=== PATIENT | male | born 1960 | race Caucasian/White ===

== ENCOUNTER 2020-11-25 05:25 | Day surgery (SDC) | payer MEDICARE ==
[~2020-11-25] VITALS: Ht 170 cm; Wt 86.0 kg
[~2020-11-25 05:25] MED LIST: ADVIL200 M1 PO; AMLODIPINE BES2.5 MG PO; CENTRUM ADULTS1 EACH PO; OMEPRAZOLE40 MG PO; ROSUVASTATIN CA10 MG PO; SILDENAFIL20 MG PO
[2020-11-25] MEDS ORDERED: PERCOCET 5-3251 EACH PO (06:56)
[2020-11-26 05:27] LABS: BASOPHIL 0.2 % (0-2); EOSINOPHIL 0.6 % (0-5); HGB 12.1 g/dl (13.2-18.0); LYMPHOCYTE 10.2 % (15-48); MCH 30.6 pg (25.0-31.0); MCHC 33.6 g/dL (32.0-36.0); MCV 91.1 fL (78.0-100.0); MONOCYTE 13.6 % (0-12); MPV 9.8 fL (6.0-9.5); NEUTROPHIL 74.8 % (41-80); NRBC 0; PLT 148 K/uL (150-400); RBC 3.95 M/uL (4.70-6.00); RDW 12.9 % (11.5-14.0); WBC 12.9 K/uL (4.0-10.5)
[2020-11-26 06:29] LABS: BUN/CREAT RATIO (CALC) 16.4 RATIO; CREATININE 0.73 mg/dL (0.67-1.17)
[2020-11-26] MEDS ORDERED: ULTRA-LIGHT RO1 EACH XX (08:58)
[2020-11-26] MEDS ORDERED: 3IN1 COMMODE XX (08:58)
[2020-11-26] MEDS ORDERED: FEOSOL325 MG PO (08:58)
[2020-11-26] MEDS ORDERED: ASPIRIN81 MG PO (09:26)
--- NOTE | 2020-11-26 11:35 | NUR ---
PT. HAD A RATHR ON 11/25/20. PT. REQUESTED TECHNICAL PROJECT MANAGER FOR OUTPT. FIRST APPT. IS 11/27/20 @ 9:00 A.MJohn ADRIAN TO DELIVER A ROLLING WALKER AND 04/28. PT. SIGNED A CHOICE FORM. PT. WILL D/C HOME WITH SPOUSE ON 11/26/20.
== END 2020-11-26 12:19 | disposition home or self-care (01) ==
LOC: FAS 05:25 → FOFB 08:50 → FAS 11-26 12:19
PROVIDERS: Orthopaedic Surgery
DX: M16.11 Unilateral primary osteoarthritis, right hip (principal); K21.9 Gastro-esophageal reflux disease without esophagitis; F32.9 Major depressive disorder, single episode, unspecified; F41.9 Anxiety disorder, unspecified
CPT/HCPCS: 36415; 73501; 76000; 80048; 85025; 86850; 86900; 86901; 94010; 97110; 97162; 97166; 97530-GP; 97535; C1776; J0171; J0697; J1100; J1170; J1885; J2250; J2270; J2405; J2704; J2795; J3010; J7120